=== PATIENT | female | born 1955 | race Caucasian/White ===

== ENCOUNTER → 2019-11-30 10:09 | Outpatient (BNVA) | payer MEDICAID, SELFPAY | PROVIDERS: Family Provider Internal Medicine; PCP Family Medicine; Visit Provider Nurse Practitioner | DX: F43.12 Post-traumatic stress disorder, chronic (principal); F41.9 Anxiety disorder, unspecified; F12.20 Cannabis dependence, uncomplicated; F60.3 Borderline personality disorder; F17.210 Nicotine dependence, cigarettes, uncomplicated | CPT/HCPCS: 99213 ==

== ENCOUNTER → 2020-02-27 07:44 | Outpatient (BNVA) | payer MEDICAID, SELFPAY | PROVIDERS: Family Provider Internal Medicine; PCP Family Medicine; Visit Provider Nurse Practitioner | DX: F41.9 Anxiety disorder, unspecified (principal); F43.12 Post-traumatic stress disorder, chronic; F17.210 Nicotine dependence, cigarettes, uncomplicated; F60.3 Borderline personality disorder; F12.20 Cannabis dependence, uncomplicated | CPT/HCPCS: 99213 ==

== ENCOUNTER 2020-04-01 06:39 | Emergency (ER) | payer MEDICAID, SELFPAY ==
[2020-04-01 06:41] VITALS: BP 158/95; PULSE 120; RESP 24; TEMP 36.7; O2SAT 95; BMI 35.4
--- NOTE | 2020-04-01 06:59 | XRR_ITS ---
PROCEDURE INFORMATION: Exam: XR Lumbosacral Spine, 2 or 3 Views Exam date and time: 04/01/2020 7:08 AM Age: 64 years old Clinical indication: Low back pain; Patient HX: C/O low back and lle pain, tripped over a dog bowl last night but denies falling; Additional info: Sciatica TECHNIQUE: Imaging protocol: XR of the lumbosacral spine, 3 views. Other technique: AP, lateral and spot lateral views of the lumbar spine are submitted. COMPARISON: CR Lumbar Spine 2-3 views* [id number] 08/02/2015 1:28 AM FINDINGS: Vertebrae: Degenerative disc disease at left lumbar spine disk level, with mild levoscoliosis. 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 Soft tissues: Unremarkable. XR/XR lumbar spine 2-3V* [id number] IMPRESSION: 1. Degenerative changes as above. 2. No acute lumbar spinal bony abnormality identified.
--- NOTE | 2020-04-01 07:06 | W.ED.EXTPRO ---
HPI - Extremity Problem General: Chief complaint: Extremity Problem,Nontraumatic Stated complaint: leg pain Time Seen by Provider: 04/01/20 06:43 History of Present Illness: HPI Narrative: Patient has a long history of left leg pain and sciatica. She states that her left leg and left hip are hurting much more today than typically. She does not report any new injury. MD Complaint: extremity pain Onset (ago): unknown Pain Consistency: constant Location: left Severity scale (1-10): >10 Quality: stabbing and sharp Radiation: distal Relieving factors: nothing Exacerbating factors: range of motion, weight bearing, walking and palpation Associated symptoms: Reports no associated symptoms Review of Systems General: Reports: 10 or more systems reviewed and unremarkable except in HPI and below PFSH ED PFSH: Medical History Anxiety disorder, unspecified Borderline personality disorder Cannabis dependence, uncomplicated Nicotine dependence, cigarettes, uncomplicated Post-traumatic stress disorder, chronic Social History Smoking and tobacco status: current every day smoker cigarettes Smoking risk assessment/counseling performed?: Yes Tobacco counseling given: counseling >3 minutes Physical Exam Const: COMMON NORMALS: patient oriented x3, no limitations and alert GENERAL APPEARANCE: in distress HENMT: COMMON NORMALS: normocephalic, atraumatic, external ears normal and Normal external nose present HEAD & SCALP: normocephalic and atraumatic FACE & SINUS: normal facial exam NOSE: Normal external nose present EXTERNAL EAR: Yes external ears normal MOUTH: Normal oral and palatal mucosa present Neck/C-Spine: COMMON NORMALS: full ROM, no lymphadenopathy, supple, no meningeal signs and no JVD GENERAL: Yes normal visual inspection Resp: COMMON NORMALS: normal respiratory effort, No retractions, No use of accessory muscles and clear to auscultation bilaterally AUSCULTATION: clear to auscultation bilaterally Cardio: COMMON NORMALS: no JVD, regular rate and regular rhythm RATE: regular rate RHYTHM: regular rhythm GI: COMMON NORMALS: Normal to inspection, nondistended, normoactive bowel sounds present, Soft to palpation, non-tender, No hepatosplenomegaly present and no masses INSPECTION: Yes normal to inspection AUSCULTATION: Yes normoactive bowel sounds PALPATION: Yes Soft to palpation and Yes No hepatosplenomegaly present PERCUSSION: normal to percussion : COMMON NORMALS: Yes no CVA tenderness and Yes normal external appearance BLADDER/KIDNEY EXAM: Yes no CVA tenderness Back/Pelvis: COMMON NORMALS: no CVA tenderness, thoracic and lumbar spine normal to inspection, no thoracic nor lumbar tenderness, thoraco-lumbar ROM normal and straight leg raise negative bilaterally Extremity: COMMON NORMALS: normal to inspection, full ROM, capillary refill normal, no joint enlargement, no clubbing, cyanosis or edema, no calf tenderness and no pedal edema Neuro: COMMON NORMALS: patient oriented x3, moves all extremities, no focal motor deficits and no sensory deficits noted SENSORIUM/ORIENTATION: Yes alert MENINGEAL SIGNS: Yes no meningeal signs Psych: COMMON NORMALS: mental status grossly normal, Normal thought process present, cooperative, normal affect and speech normal SPEECH: Yes normal speech THOUGHT PROCESS: Normal thought process present Skin: COMMON NORMALS: no rashes or lesions noted, no wounds, turgor normal, no jaundice, no petechiae and no mottling GENERAL SKIN EXAM: no rashes or lesions noted and turgor normal Course Vital Signs: Vital signs: Vital Signs Temperature 98.0 F 04/01/20 06:41 Pulse Rate 120 H 04/01/20 06:41 Respiratory Rate 24 H 04/01/20 06:41 Blood Pressure 158/95 04/01/20 06:41 Pulse Oximetry 95 04/01/20 06:41 MDM - Extremity (Nontraumatic) Imaging Data^: Xray Ortho: My impression: No evidence of acute bony abnormality Discharge Plan Discharge Patient Disposition: Home, Self-Care Clinical Impression: Acute lumbar myofascial strain Qualifiers: Encounter type: initial encounter Qualified Code(s): S39.012A - Strain of muscle, fascia and tendon of lower back, initial encounter Condition: Stable Prescriptions: New cyclobenzaprine 10 mg tablet 10 mg PO TID PRN (Reason: muscle spasm) Qty: 21 RF: 0 No Action opium tincture 10 mg/mL (morphine) tincture 0.3 ml PO TID PRNRF: 0 ropinirole 4 mg tablet 4 mg PO BID RF: 0 acyclovir 400 mg tablet 400 mg PO BID RF: 0 azathioprine 50 mg tablet 100 mg PO DAILY RF: 0 cyclobenzaprine 10 mg tablet 10 mg PO TID PRNRF: 0 hydrocodone-acetaminophen 7.5-325 mg tablet 1 tab PO QID PRNRF: 0 duloxetine [Cymbalta] 60 mg capsule,delayed release(DR/EC) 120 mg PO QAM Qty: 60 RF: 2 mirtazapine 45 mg tablet 45 mg PO .QHS Qty: 30 RF: 2 nicotine 21 mg/24 hr patch 24 hour 1 patch TRANSDERMA Q24H Qty: 28 RF: 0 Discharge Orders: Discharge Order (Routine); Ordered 04/01/20 Ordered By: Carlos Garcia Referrals: Fede Jordan MD [Primary Care Provider] - Sae Oneal DO [Family Provider] - Coding Level of Care Code ED Credit Support Specialist for Chg Fwd Exam Comprehensive
[2020-04-01] MEDS: ketorolac 60 mg/2 mL INJ IM (07:15)
[2020-04-01] MEDS: ondansetron 2 mg/ML SDV 2 mL 4 MG IVP (07:41)
[2020-04-01 07:46] VITALS: RESP 18; O2SAT 96
[2020-04-01] MEDS: morphine 4 mg/mL SDV 1 mL 2 MG IVP (07:46)
[2020-04-01 07:57] VITALS: BP 99/76; PULSE 86; RESP 18; O2SAT 97
== END 2020-04-01 08:00 | disposition home or self-care (01) ==
PROVIDERS: Emergency Provider Family Medicine; Family Provider Internal Medicine; PCP Family Medicine
DX: S39.012A Strain of muscle, fascia and tendon of lower back, initial encounter (principal); F17.210 Nicotine dependence, cigarettes, uncomplicated; X58.XXXA Exposure to other specified factors, initial encounter
CPT/HCPCS: 12345; 72100; 96372; 96374; 96375; 99281; 99283; J1885; J2270; J2405

== ENCOUNTER → 2020-04-23 09:25 | Outpatient (BNVA) | payer OTHER, SELFPAY | PROVIDERS: Family Provider Internal Medicine; PCP Family Medicine; Visit Provider Nurse Practitioner | DX: F41.9 Anxiety disorder, unspecified (principal); Z79.899 Other long term (current) drug therapy; F43.10 Post-traumatic stress disorder, unspecified | CPT/HCPCS: 80061; 83036 ==

== ENCOUNTER → 2020-04-25 10:32 | Outpatient (BNVA) | payer MEDICAID, SELFPAY | PROVIDERS: Family Provider Internal Medicine; PCP Family Medicine; Visit Provider Nurse Practitioner | DX: F41.9 Anxiety disorder, unspecified (principal); Z79.899 Other long term (current) drug therapy | CPT/HCPCS: 36415; 83036 ==

== ENCOUNTER → 2020-06-29 07:32 | Outpatient (BNVA) | payer MEDICAID, SELFPAY ==
[2020-04-27 12:14] VITALS: BP 146/91; BMI 31.8
== END ==
PROVIDERS: Family Provider Internal Medicine; PCP Family Medicine; Visit Provider Nurse Practitioner
DX: F43.12 Post-traumatic stress disorder, chronic (principal); F41.9 Anxiety disorder, unspecified; F12.20 Cannabis dependence, uncomplicated
CPT/HCPCS: 99213

== ENCOUNTER 2020-09-08 10:46 | Emergency (ER) | payer MEDICAID, SELFPAY ==
[2020-04-27 12:14] VITALS: BP 146/91; BMI 31.8
[2020-09-08 11:02] VITALS: BP 124/79; PULSE 108; RESP 16; TEMP 37.4; O2SAT 97; BMI 31.8
--- NOTE | 2020-09-08 11:12 | ED_ITS ---
HPI - Extremity Problem General: Chief complaint: Extremity Problem,Nontraumatic Stated complaint: LEFT THIGH PAIN Time Seen by Provider: 09/08/20 11:12 Source: patient Mode of arrival: ambulatory Limitations: no limitations History of Present Illness: HPI Narrative: Patient comes in for restless legs. Patient reports she has had left leg tenderness to the thigh with restlessness of her lower leg. Patient states that she has real bad restless leg syndrome. Patient states that she had back surgery done at the end of July and has been going about doing her work as normal at home after getting home on the . Patient moves all extremities well denies any bowel or bladder problems. Patient reports though that on of this week she slipped and fell from a kneeling position landing on her buttocks at about 1 foot. Since then she has had increased discomfort to the left thigh and restlessness in her legs. Patient reports that her legs are more restless probably due to the dexamethasone they have her on for post surgery swelling. Patient appears anxious and very restless. MD Complaint: extremity pain Review of Systems General: Reports: 10 or more systems reviewed and unremarkable except in HPI and below Musc: Reports: other (left leg pain) [facility] ED PFSH: Medical History (Updated 09/08/20 @ 12:30 by SHAD Ruiz) Anxiety disorder, unspecified Borderline personality disorder Cannabis dependence, uncomplicated Nicotine dependence, cigarettes, uncomplicated Post-traumatic stress disorder, chronic Family History (Updated 06/28/20 @ 13:48 by Jocelynn Muhammad LPN) Father CAD (coronary artery disease) Cancer Mother CAD (coronary artery disease) Cancer Brother CAD (coronary artery disease) Sister Cancer Social History (Updated 09/08/20 @ 11:09 by Seth Donohue RN) Smoking and tobacco status: current every day smoker cigarettes Packs smoked per day: 0.5 Quit status (tobacco): not considering quitting Smoking risk assessment/counseling performed?: Yes Tobacco counseling given: counseling >3 minutes Alcohol intake: never Substance/Drug Use: current Substance/Drug use frequency: daily Substance/Drug use type: Marijuana Current gender identity: Female Physical Exam Const: COMMON NORMALS: no acute distress and patient oriented x3 GENERAL APPEARANCE: cooperative HENMT: COMMON NORMALS: normocephalic, TM's normal bilaterally and Normal external nose present HEAD & SCALP: normal to inspection and normocephalic NOSE: Normal external nose present TYMPANIC MEMBRANE: TM's normal bilaterally MOUTH: Normal oral and palatal mucosa present THROAT: posterior oropharynx normal Eye: GENERAL EYE: appearance normal, both eyes and all related structures Neck/C-Spine: COMMON NORMALS: full ROM Lymph: LYMPHATIC: no lymphadenopathy noted Chest: COMMONS NORMALS: normal inspection of the chest Resp: COMMON NORMALS: normal respiratory effort EFFORT & INSPECTION: Yes able to speak in complete sentences Cardio: COMMON NORMALS: regular rate and regular rhythm RATE: regular rate RHYTHM: regular rhythm GI: COMMON NORMALS: non-tender : COMMON NORMALS: Yes no CVA tenderness BLADDER/KIDNEY EXAM: Yes no CVA tenderness Back/Pelvis: COMMON NORMALS: no CVA tenderness and thoracic and lumbar spine normal to inspection Extremity: NARRATIVE EXTREMITY EXAM: Normal movement of the lower extremities. Normal muscle strength. Patient constantly moves her legs unless redirected. When she is talking about other things patient's legs stop moving. Neuro: COMMON NORMALS: patient oriented x3 and moves all extremities Psych: COMMON NORMALS: mental status grossly normal and cooperative Skin: NARRATIVE SKIN EXAM: Healed surgical incision to the low back. Course Vital Signs: Vital signs: Vital Signs Temperature 99.3 F 09/08/20 11:02 Pulse Rate 108 H 09/08/20 11:02 Respiratory Rate 16 09/08/20 11:02 Blood Pressure 117/96 09/08/20 12:13 Pulse Oximetry 97 09/08/20 11:02 MDM - Extremity (Nontraumatic) MDM Narrative: Medical decision making narrative: Patient comes in today for complaints of restless legs and pain in the left thigh. Patient was concerned d ue to the fact that she had recently stumbled and fell and had had lumbar surgery at the end of last month. Patient appears well. Patient moves extremities without any difficulty. Patient denied any bowel or bladder problems. Vital signs were normal. Patient was very anxious. Differential diagnosis includes but not limited to neuropathy, injury, anxiety. X-ray noted no significant abnormality. Patient was given Ativan and symptoms abated significantly. Further discussion realized patient was out of her gabapentin we will write a short prescription for gabapentin and a short prescription for lorazepam for breakthrough anxiety. Patient was recommended to follow-up with primary care for further treatment and evaluation. Patient reported understanding. Discharge Plan Discharge Patient Disposition: Home Clinical Impression: Neuropathy, Restless legs syndrome (RLS) Anxiety disorder, unspecified Qualifiers: Anxiety disorder type: unspecified anxiety disorder Qualified Code(s): F41.9 - Anxiety disorder, unspecified Condition: Stable Prescriptions: New lorazepam 0.5 mg tablet 0.5 mg PO DAILY PRN (Reason: anxiety) Qty: 7 RF: 0 gabapentin 300 mg capsule 300 mg PO TID Qty: 30 RF: 0 No Action meloxicam 7.5 mg tablet 7.5 mg PO DAILY Qty: 10 RF: 0 opium tincture 10 mg/mL (morphine) tincture 0.3 ml PO TID PRNRF: 0 ropinirole 4 mg tablet 4 mg PO BID RF: 0 acyclovir 400 mg tablet 400 mg PO BID RF: 0 azathioprine 50 mg tablet 100 mg PO DAILY RF: 0 cyclobenzaprine 10 mg tablet 10 mg PO TID PRNRF: 0 hydrocodone-acetaminophen 7.5-325 mg tablet 1 tab PO QID PRNRF: 0 gabapentin 300 mg capsule 300 mg PO .at bed RF: 0 duloxetine [Cymbalta] 60 mg capsule,delayed release(DR/EC) 120 mg PO QAM Qty: 60 RF: 2 mirtazapine 45 mg tablet 45 mg PO .QHS Qty: 30 RF: 0 cyclobenzaprine 10 mg tablet 10 mg PO TID PRN (Reason: muscle spasm) Qty: 21 RF: 0 Discharge Orders: Discharge ED (Routine); Ordered 09/08/20 Ordered By: Radames Cary Discharge Diet: Usual diet Discharge Activity: Increase activity as tolerated Activity Restrictions/Additional Instructions: Activity as tolerated. Take medications as directed. Follow-up with primary care for further treatment and evaluation. Talk with surgeon or prescriber for gabapentin to ensure that prescriptions have been sent to pharmacy. Return to the emergency department for new concerns. Coding Level of Care Code ED Security And Privacy Consultant for Carlos Fwyariel Exam Comprehensive
--- NOTE | 2020-09-08 11:20 | XRR_ITS ---
PROCEDURE INFORMATION: Exam: XR Lumbosacral Spine, 2 or 3 Views Exam date and time: 09/08/2020 11:21 AM Age: 65 years old Clinical indication: Injury or trauma; Fall; Blunt trauma (contusions or hematomas) TECHNIQUE: Imaging protocol: XR of the lumbosacral spine, 2 or 3 views. COMPARISON: CT abdomen pelvis w con* [id number] 09/25/2016 11:29 AM FINDINGS: Bones/joints: The patient has undergone L2 through L5 laminectomy and fusion. Pedicle screws and rods are present from L2 through L5 with vertebral disc spacers. Position and alignment appears satisfactory. No fracture, malalignment or other acute abnormality is seen. Soft tissues: Unremarkable. XR/XR lumbar spine 2-3V* [id number] IMPRESSION: 1. Satisfactory appearance of the L2 through L5 laminectomy and fusion surgery. 2. No acute abnormalities are seen.
[2020-09-08] MEDS: LORazepam 2 mg/mL INJ 1 mL IM (11:25)
[2020-09-08 12:13] VITALS: BP 117/96
[2020-09-08 12:38] VITALS: BP 140/86
== END 2020-09-08 12:39 | disposition home or self-care (01) ==
PROVIDERS: Emergency Provider Nurse Practitioner Family
DX: G25.81 Restless legs syndrome (principal); F41.9 Anxiety disorder, unspecified; G62.9 Polyneuropathy, unspecified; F17.210 Nicotine dependence, cigarettes, uncomplicated
CPT/HCPCS: 12345; 72100; 96372; 99281; 99283; J2060

== ENCOUNTER → 2020-10-12 07:52 | Outpatient (BNVA) | payer MEDICAID, SELFPAY ==
[2020-04-27 12:14] VITALS: BP 146/91; BMI 31.8
== END ==
PROVIDERS: PCP Family Medicine; Visit Provider Nurse Practitioner
DX: F43.12 Post-traumatic stress disorder, chronic (principal); F41.9 Anxiety disorder, unspecified; F12.20 Cannabis dependence, uncomplicated; F60.3 Borderline personality disorder; F17.210 Nicotine dependence, cigarettes, uncomplicated
CPT/HCPCS: 99214

== ENCOUNTER 2020-11-17 19:37 | Emergency (ER) | payer MEDICAID, SELFPAY ==
[2020-04-27 12:14] VITALS: BP 146/91; BMI 31.8
[2020-11-17 20:05] VITALS: BMI 35.4
[2020-11-17 20:10] VITALS: BP 139/87; PULSE 110; RESP 16; TEMP 37.1; O2SAT 97
--- NOTE | 2020-11-17 21:56 | ECG_ITS ---
[facility] Test Date: 2020-11-17 Pat Name: Kristin Argueta Department: Room: Gender: Female Electronics Supervisor: : 1955 Requested By: Alea Gibbs Order Number: [id number] William MD: Froy Back M.D. Measurements Intervals [place] Rate: 88 P: 77 CA: 144 QRS: 21 QRSD: 127 T: 79 QT: 370 QTc: 449 Interpretive Statements SINUS RHYTHM POSSIBLE RIGHT ATRIAL ENLARGEMENT [0.25mV P WAVE] LEFT ATRIAL ENLARGEMENT [-0.15mV P WAVE IN V1/V2] ANTEROSEPTAL MYOCARDIAL INFARCTION , OF INDETERMINATE AGE [40+ ms Q WAVE IN V1-V4] Compared to ECG 10/14/2018 12:11:41 Atrial abnormality now present Myocardial infarct finding now present T-wave abnormality no longer present Electronically Signed On 11-18-2020 17:02:22 RELEASE MANAGER by Froy Back M.D. [id number]
[2020-11-17 22:06] LABS: Basophils # 0.1 10^3/uL (0.0-0.1); Basophils % 1.7 %; Eosinophils # 0.3 10^3/uL (0.0-0.8); Eosinophils % 4.9 %; Hematocrit 39.1 % (37.0-47.0); Hemoglobin 12.1 g/dL (11.5-15.3); Lymphocytes # 1.9 10^3/uL (0.8-4.8); Lymphocytes % 29.7 %; Mean Corpuscular HGB Conc 30.9 g/dL (30.0-36.0); Mean Corpuscular Hemoglobin 26.1 pg (28.0-34.0); Mean Corpuscular Volume 84.4 fL (81-99); Monocytes # 0.7 10^3/uL (0.2-0.9); Monocytes % 10.2 %; Neutrophils # 3.45 10^3/uL (1.8-7.7); Neutrophils % 53.3 %; Nucleated Red Blood Cells % 0 %; Platelet Count 423 10^3/cmm (130-400); Red Blood Count 4.63 10^6/uL (4.1-5.3); Red Cell Distribution Width 15.6 % (12.1-15.1); White Blood Count 6.5 10^3/uL (4.0-10.0)
[2020-11-17 22:20] LABS: INR 0.99 (0.8-1.2)
[2020-11-17 22:38] LABS: Alanine Aminotransferase 11 U/L (0-33); Albumin Level 4.2 g/dL (3.5-5.2); Alkaline Phosphatase 81 IU/L (35-105); Aspartate Amino Transferase 15 U/L (0-32); Blood Urea Nitrogen 15 mg/dL (8-23); Carbon Dioxide 22 mmol/L (22-29); Chloride 104 mmol/L (98-107); Creatinine Clr Calc Pharmacy 72.9596; Glomerular Filtration Rate 71.5 mL/min (90-130); Glucose 103 mg/dL (65-115); Osmolality Calculated 285 mOsm/kg (285-295); Sodium 137 mmol/L (136-145); Thyroid Stimulating Hormone 2.74 uIU/mL (0.27-4.20); Total Bilirubin 0.2 mg/dL (0.15-1.2); Total Protein 7.2 g/dL (6.6-8.7)
[2020-11-17 22:45] LABS: Acetaminophen < 5.0 ug/mL (10-30); Alcohol Level < 10 mg/dL (0-10); Salicylate < 0.3 mg/dL (3-10)
--- NOTE | 2020-11-17 23:09 | ED_ITS ---
HPI - Psych General: Chief Complaint: Psychiatric Symptoms Stated Complaint: psych Time Seen by Provider: 11/17/20 19:48 Source: patient Mode of arrival: EMS Limitations: no limitations History of Present Illness: HPI Narrative: 65-year-old female with a history of chronic pain, anxiety brought in by EMS after her home health aide called 911 to report concerns that the patient was suicidal. Apparently the patient had become very frustrated earlier in the day because of family drama, and had made a suicidal statedment via text to the aide. She has no previous suicide attem pts. She admits to previous suicidal ideations in the past, but has never acted upon them, and does not believe that she would ever would act upon them. Currently she is denying any active suicidal ideation. She was very frustrated and angry at the time that she said that to the aid, she feels differently now and she wishes that the aide would have talk to her first before calling 911. She has a dog that she takes everywhere with her, and she says she would never kill herself because she would never want to leave the dog alone, in addition she has family and friends that she is close to, and she realizes that the current family problems will probably blow over. Denies any homicidal ideation. No audiovisual hallucinations. Review of Systems General: Reports: 10 or more systems reviewed and unremarkable except in HPI and below PFSH ED PFSH: Medical History Anxiety disorder, unspecified Borderline personality disorder Cannabis dependence, uncomplicated Nicotine dependence, cigarettes, uncomplicated Post-traumatic stress disorder, chronic Family History Father CAD (coronary artery disease) Cancer Mother CAD (coronary artery disease) Cancer Brother CAD (coronary artery disease) Sister Cancer Social History Smoking and tobacco status: current every day smoker cigarettes Packs smoked per day: 0.5 Quit status (tobacco): not considering quitting Smoking risk assessment/counseling performed?: Yes Tobacco counseling given: counseling >3 minutes Alcohol intake: never Current gender identity: Female Physical Exam Const: COMMON NORMALS: no acute distress and patient oriented x3 GENERAL APPEARANCE: cooperative; not in distress, not anxious, not combative, not disheveled, not ill appearing and not frail appearing NUTRITIONAL APPEARANCE: overweight HENMT: COMMON NORMALS: normocephalic and hearing grossly normal bilaterally HEAD & SCALP: normocephalic FACE & SINUS: normal facial exam and face symmetric Eye: COMMON NORMALS: Equal, round and reactive pupils present, EOMs intact bilaterally, conjunctivae normal and no scleral icterus GENERAL EYE: appearance normal, both eyes and all related structures ALIGNMENT: Yes alignment normal CONJUNCTIVA: Yes conjunctivae normal PUPIL: Yes Equal, round and reactive pupils present EOM: Yes EOM abnormal Neck/C-Spine: COMMON NORMALS: full ROM and no lymphadenopathy Resp: COMMON NORMALS: clear to auscultation bilaterally EFFORT & INSPECTION: Yes able to speak in complete sentences, No tachypneic and No respiratory distress AUSCULTATION: clear to auscultation bilaterally Neuro: COMMON NORMALS: patient oriented x3, CN's II-XII intact bilaterally, moves all extremities, no focal motor deficits, no sensory deficits noted and gait normal Psych: COMMON NORMALS: mental status grossly normal, Normal thought process present, cooperative, normal affect, speech normal, activity/motor behavior normal, denies hallucinations, denies homicidal ideation and denies suicidal ideation APPEARANCE: Yes grossly normal ATTITUDE: Yes calm SPEECH: Yes normal speech THOUGHT PROCESS: Normal thought process present THOUGHT CONTENT: Yes Normal thought content present ATTENTION/CONCENTRATION: Yes attention grossly intact MEMORY/COGNITION: Yes memory grossly intact INSIGHT: Good insight present (Psych) JUDGEMENT: Good judgement present (Psych) Skin: COMMON NORMALS: no rashes or lesions noted GENERAL SKIN EXAM: no rashes or lesions noted MDM - Psych MDM Narrative: Medical decision making narrative: 65-year-old female with a history of depression, anxiety, chronic pain made passive suicidal statements to her aid via text earlier today. Currently she denies any suicidal ideation, states that she was just angry and frustrated at the time. She admits to having suicidal thoughts in the past, but never has acted upon them, and says she would never actually harm herself because she has people and animals that depend on her. She understands why her aide reacted to her text and called 911, however she wishes at the age would have talk to her first because she would have reassured her that she was not actually serious, and that she was just mad. Patient is not actively suicidal, she is alert and oriented, and is able to make her own decisions. I recommended she follow-up closely with her PCP and that she not hesitate to return if she starts to have any worsening thoughts of harming herself. Medical Records: Attestation: I reviewed the patient's medical records. Lab Data: Attestation: I reviewed the patient's lab results. Labs: Lab Results 11/17/20 11/17/20 11/17/20 Range/Units 20:10 20:10 20:10 WBC 6.5 (4.0-10.0) 10^3/ uL RBC 4.63 (4.1-5.3) 10^6/u L Hgb 12.1 (11.5-15.3) g/dL Hct 39.1 (37.0-47.0) % MCV 84.4 (81-99) fL MCH 26.1 L (28.0-34.0) pg MCHC 30.9 (30.0-36.0) g/dL RDW 15.6 H (12.1-15.1) % Plt Count 423 H (130-400) 10^3/c mm MPV 10.0 (7.4-10.4) fL Neut % (Auto) 53.3 % Lymph % (Auto) 29.7 % Bledsoe % (Auto) 10.2 % Eos % (Auto) 4.9 % Baso % (Auto) 1.7 % Neut # (Auto) 3.45 (1.8-7.7) 10^3/u L Lymph # (Auto) 1.9 (0.8-4.8) 10^3/u L Bledsoe # (Auto) 0.7 (0.2-0.9) 10^3/u L Eos # (Auto) 0.3 (0.0-0.8) 10^3/u L Baso # (Auto) 0.1 (0.0-0.1) 10^3/u L Nucleated RBC % (a uto) 0 % Nucleated RBCs # 0.0 /100WBC PT 13.40 (12.1-14.9) SECO NDS INR 0.99 (0.8-1.2) Sodium 137 (136-145) mmol/L Potassium 4.0 (3.5-5.1) mmol/L Chloride 104 (98-107) mmol/L Carbon Dioxide 22 (22-29) mmol/L Anion Gap 15.0 (5-19) BUN 15 (8-23) mg/dL Creatinine 0.8 (0.5-0.9) mg/dL GFR Calculation 71.5 L (90-130) mL/min Glucose 103 (65-115) mg/dL Calculated Osmolal ity 285 (285-295) mOsm/k g Calcium 9.0 (8.5-10.5) mg/dL Total Bilirubin 0.2 (0.15-1.2) mg/dL AST 15 (0-32) U/L ALT 11 (0-33) U/L Alkaline Phosphata se 81 (35-105) IU/L Total Protein 7.2 (6.6-8.7) g/dL Albumin 4.2 (3.5-5.2) g/dL Globulin 3.0 (1.3-4.6) g/dL TSH 2.74 (0.27-4.20) uIU/ mL HCG, Qual Salicylates < 0.3 L (3-10) mg/dL Acetaminophen < 5.0 L (10-30) ug/mL Ethyl Alcohol < 10 (0-10) mg/dL 11/17/20 Range/Units 21:46 WBC (4.0-10.0) 10^3/ uL RBC (4.1-5.3) 10^6/u L Hgb (11.5-15.3) g/dL Hct (37.0-47.0) % MCV (81-99) fL MCH (28.0-34.0) pg MCHC (30.0-36.0) g/dL RDW (12.1-15.1) % Plt Count (130-400) 10^3/c mm MPV (7.4-10.4) fL Neut % (Auto) % Lymph % (Auto) % Bledsoe % (Auto) % Eos % (Auto) % Baso % (Auto) % Neut # (Auto) (1.8-7.7) 10^3/u L Lymph # (Auto) (0.8-4.8) 10^3/u L Bledsoe # (Auto) (0.2-0.9) 10^3/u L Eos # (Auto) (0.0-0.8) 10^3/u L Baso # (Auto) (0.0-0.1) 10^3/u L Nucleated RBC % (a uto) % Nucleated RBCs # /100WBC PT (12.1-14.9) SECO NDS INR (0.8-1.2) Sodium (136-145) mmol/L Potassium (3.5-5.1) mmol/L Chloride (98-107) mmol/L Carbon Dioxide (22-29) mmol/L Anion Gap (5-19) BUN (8-23) mg/dL Creatinine (0.5-0.9) mg/dL GFR Calculation (90-130) mL/min Glucose (65-115) mg/dL Calculated Osmolal ity (285-295) mOsm/k g Calcium (8.5-10.5) mg/dL Total Bilirubin (0.15-1.2) mg/dL AST (0-32) U/L ALT (0-33) U/L Alkaline Phosphata se (35-105) IU/L Total Protein (6.6-8.7) g/dL Albumin (3.5-5.2) g/dL Globulin (1.3-4.6) g/dL TSH (0.27-4.20) uIU/ mL HCG, Qual Cancelled Salicylates (3-10) mg/dL Acetaminophen (10-30) ug/mL Ethyl Alcohol (0-10) mg/dL Discharge Plan Discharge Patient Disposition: Home Clinical Impression: Passive suicidal ideations Anxiety disorder, unspecified Qualifiers: Anxiety disorder type: other mixed anxiety disorder Qualified Code(s): F41.3 - Other mixed anxiety disorders Condition: Stable Prescriptions: No Action meloxicam 7.5 mg tablet 7.5 mg PO DAILY Qty: 10 RF: 0 opium tincture 10 mg/mL (morphine) tincture 0.3 ml PO TID PRNRF: 0 ropinirole 4 mg tablet 4 mg PO BID RF: 0 acyclovir 400 mg tablet 400 mg PO BID RF: 0 azathioprine 50 mg tablet 100 mg PO DAILY RF: 0 cyclobenzaprine 10 mg tablet 10 mg PO TID PRNRF: 0 hydrocodone-acetaminophen 7.5-325 mg tablet 1 tab PO QID PRNRF: 0 gabapentin 300 mg capsule 300 mg PO .at bed RF: 0 duloxetine [Cymbalta] 60 mg capsule,delayed release(DR/EC) 120 mg PO QAM Qty: 60 RF: 2 mirtazapine 45 mg tablet 45 mg PO .QHS Qty: 30 RF: 2 lorazepam 0.5 mg tablet 0.5 mg PO DAILY PRN (Reason: anxiety) Qty: 7 RF: 0 gabapentin 300 mg capsule 300 mg PO TID Qty: 30 RF: 0 cyclobenzaprine 10 mg tablet 10 mg PO TID PRN (Reason: muscle spasm) Qty: 21 RF: 0 Discharge Orders: Discharge ED (Routine); Ordered 11/17/20 Ordered By: Alea Gibbs Referrals: Fede Jordan MD [Primary Care Provider] - Discharge Diet: Usual diet Discharge Activity: Resume usual activity Patient Instructions: Suicide Prevention for Adults (ED), Suicidal Ideation Activity Restrictions/Additional Instructions: Call your professional services manager tomorrow morning to check in and discuss what happened tonight. Follow-up with your primary care doctor in the next week. Return immediately to the ER if you start having more frequent thoughts of self- harm, or if you start to feel overwhelmed and hopeless. Coding Level of Care Code ED Fish Housekeeper for Carlos Hernandez
== END 2020-11-17 22:51 | disposition home or self-care (01) ==
PROVIDERS: Emergency Provider Family Medicine; PCP Family Medicine
DX: R45.851 Suicidal ideations (principal); F41.3 Other mixed anxiety disorders; F17.210 Nicotine dependence, cigarettes, uncomplicated
CPT/HCPCS: 80053; 80307; 84443; 85025; 85610; 93005; 99283

== ENCOUNTER → 2020-12-26 08:03 | Outpatient (BNVA) | payer MEDICAID, SELFPAY ==
[2020-04-27 12:14] VITALS: BP 146/91; BMI 31.8
== END ==
PROVIDERS: PCP Family Medicine; Visit Provider Nurse Practitioner
DX: F43.12 Post-traumatic stress disorder, chronic (principal); F41.9 Anxiety disorder, unspecified; F12.20 Cannabis dependence, uncomplicated; F60.3 Borderline personality disorder; F17.210 Nicotine dependence, cigarettes, uncomplicated; F41.3 Other mixed anxiety disorders
CPT/HCPCS: 99214

== ENCOUNTER → 2021-03-06 09:02 | Outpatient (BNVA) | payer MEDICAID, SELFPAY ==
[2020-04-27 12:14] VITALS: BP 146/91; BMI 31.8
== END ==
PROVIDERS: PCP Family Medicine; Visit Provider Nurse Practitioner
DX: F60.3 Borderline personality disorder (principal); F41.3 Other mixed anxiety disorders; F43.12 Post-traumatic stress disorder, chronic; F17.210 Nicotine dependence, cigarettes, uncomplicated
CPT/HCPCS: 99214

== ENCOUNTER 2021-03-21 07:59 | Emergency (ER) | payer MEDICAID, SELFPAY ==
[2020-04-27 12:14] VITALS: BP 146/91; BMI 31.8
[2021-03-21 08:29] VITALS: BP 143/112; PULSE 92; RESP 24; TEMP 36.7; O2SAT 99; BMI 36.8
--- NOTE | 2021-03-21 08:39 | XR_ITS ---
WS: [id number] Portable AP upright chest, 03/21/2021 Clinical Data: cough, R chest pain Comparison: Portable chest, 10/14/2018. Findings: There are small bilateral pleural effusions. There is minimal opacity over the surface of t he left diaphragm and at the right costophrenic angle which could represent atelectasis and/or pneumo yosef. No nodules or masses are seen. The heart is normal. The pulmonary vascularity is not increased. No pneumothorax is seen. The aortic arch is minimally tortuous. There is absence of the distal righ t clavicle. Impression: 1. Small bilateral pleural effusions. 2. Minimal opacity over surface of left diaphragm and at the right costophrenic angle which could rep resent consolidation and/or atelectasis. 3. Atherosclerosis.
--- NOTE | 2021-03-21 08:40 | ECG_ITS ---
[facility] Test Date: 2021-03-21 Pat Name: Kristin Argueta Department: Room: Gender: Female Security Clerk: : 1955 Requested By: Addis Harley Order Number: [id number] William MD: Froy Back M.D. Measurements Intervals [place] Rate: 87 P: 73 [place]: 143 QRS: 60 QRSD: 89 T: 70 QT: 363 QTc: 437 Interpretive Statements SINUS RHYTHM LEFT ATRIAL ENLARGEMENT [-0.15mV P WAVE IN V1/V2] LOW QRS VOLTAGE IN PRECORDIAL LEADS [QRS DEFLECTION < 1.0 mV IN CHEST LEADS] Compared to ECG 11/17/2020 22:18:26 Low QRS voltage now present Myocardial infarct finding no longer present Electronically Signed On 03-21-2021 20:29:57 CDT by Froy Back M.D. [id number]
--- NOTE | 2021-03-21 08:41 | ED_ITS ---
HPI - URI/Sore Throat General: Chief Complaint: Upper Respiratory Infection Stated Complaint: SOB Time Seen by Provider: 03/21/21 08:20 Source: patient Mode of arrival: ambulatory Limitations: no limitations History of Present Illness: HPI Narrative: Patient is a 65-year-old female who presents to ED today with a complaint of cough, shortness of breath, difficulty breathing, chest pain that began approximately 10 days ago. Patient was recently seen at urgent care and diagnosed with bronchitis. She was given prescriptions for azithromycin, symbicort, and albuterol. Patient states she does not seem to be improving. She reports it feels like an elephant is sitting on her chest. She has not had any documented fevers. She does complain of body aches and fatigue. She reports a headache and nasal congestion. She is fully vaccinated for COVID. She states she quit smoking cold turkey one week ago. MD elicited complaint: cough, nasal congestion and other (SOB, chest pain) Onset (ago): day(s) Consistency: constant Severity: moderate Description of mucous: clear Able to tolerate fluids by mouth: Yes Exacerbating factors: other (coughing) Relieving factors: nothing Associated symptoms: Reports chest pain, diarrhea (chronic), headache(s) and nasal congestion; Deny abdominal pain, chills, fever(s), nausea or vomiting Treatments prior to arrival: antibiotics and other (symbicort/albuterol) Review of Systems Const: Reports: body aches and fatigue; Denies: fever(s), chills, change in appetite, change in weight, night sweats or diaphoresis Eyes: Denies: change in vision, blurry vision, photophobia, floaters or seeing flashes ENMT: Reports: nasal discharge and nasal congestion; Denies: throat pain or odynophagia Card: Reports: chest pain and dyspnea on exertion; Denies: palpitations, irregular heart rhythm, edema, swelling of feet/ankles, lightheadedness, syncope, pre-syncope, orthopnea, leg pain with exertion or acrocyanosis Resp: Reports: dyspnea, productive cough, pain on inspiration and chest congestion; Denies: wheezing, stridor or hemoptysis GI: Reports: diarrhea (chronic); Denies: abdominal pain, nausea or vomiting : Denies: flank pain or dysuria Musc: Denies: neck pain, back pain, extremity pain, extremity swelling, joint pain or joint swelling Skin/Breast: Denies: rash Neuro: Reports: headache(s); Denies: numbness in extremities, weakness in extremities, sensory changes, dizziness or confusion [facility] ED PFSH: Medical History (Updated 03/21/21 @ 10:40 by FRANCISCA Aviles) Anxiety disorder, unspecified Borderline personality disorder Cannabis dependence, uncomplicated Nicotine dependence, cigarettes, uncomplicated Post-traumatic stress disorder, chronic Post-traumatic stress disorder, unspecified Psychiatric care Family History Father CAD (coronary artery disease) Cancer Mother CAD (coronary artery disease) Cancer Brother CAD (coronary artery disease) Sister Cancer Social History Smoking and tobacco status: current every day smoker cigarettes Packs smoked per day: 0.5 Quit status (tobacco): not considering quitting Smoking risk assessment/counseling performed?: Yes Tobacco counseling given: counseling >3 minutes Alcohol intake: never Current gender identity: Female Physical Exam Const: COMMON NORMALS: patient oriented x3, no limitations and alert GENERAL APPEARANCE: cooperative and in distress (mild respiratory) NUTRITIONAL APPEARANCE: obese ORIENTATION/CONSCIOUSNESS: Yes awake, Yes oriented to person, Yes oriented to place and Yes oriented to time HENMT: COMMON NORMALS: normocephalic and atraumatic HEAD & SCALP: normocephalic and atraumatic Neck/C-Spine: COMMON NORMALS: full ROM, no lymphadenopathy and no meningeal s igns Chest: COMMONS NORMALS: normal inspection of the chest and normal palpation of entire chest wall OTHER: no pain to palpation but reports severe pain to R lower anterior ribs only with coughing Resp: EFFORT & INSPECTION: Yes tachypneic, Yes labored, No stridor, No retractions and Yes uses accessory muscles AUSCULTATION: rhonchi (improved with coughing and after duo-neb) throughout and wheezes OTHER: after duoneb patient's breathing no longer labored; no accessory muscle use; tachypnea resolved Cardio: COMMON NORMALS: regular rate and regular rhythm RATE: regular rate RHYTHM: regular rhythm GI: COMMON NORMALS: Normal to inspection, nondistended, normoactive bowel sounds present, Soft to palpation, non-tender, No hepatosplenomegaly present and no masses PALPATION: Yes Soft to palpation and Yes No hepatosplenomegaly present Back/Pelvis: THORACIC SPINE/UPPER BACK: Yes normal to inspection LUMBAR SPINE/LOWER BACK: Yes normal to inspection Extremity: COMMON NORMALS: capillary refill normal, no clubbing, cyanosis or edema and no pedal edema GENERAL: Yes normal exam except as noted Neuro: TAJ COMA SCALE: document GCS findings [place] coma scale eye opening: Spontaneous Taj coma scale verbal response: Orientated [place] coma scale motor response: Obey commands Taj coma scale total score: 15 COMMON NORMALS: patient oriented x3 SENSORIUM/ORIENTATION: Yes alert, Yes oriented to person, Yes oriented to place and Yes oriented to time MENINGEAL SIGNS: Yes no meningeal signs Skin: COMMON NORMALS: no rashes or lesions noted GENERAL SKIN EXAM: no rashes or lesions noted Course Vital Signs: Vital signs: Vital Signs Temperature 98.1 F 03/21/21 08:29 Pulse Rate 88 03/21/21 09:08 Respiratory Rate 16 03/21/21 09:00 Blood Pressure 143/112 03/21/21 08:29 Pulse Oximetry 97 03/21/21 09:00 MDM - URI/Sore Throat MDM Narrative: Medical decision making narrative: Patient feels better after DuoNeb treatment here. Her vital signs are stable. She has a normal white count. Initial troponin is elevated at 30. Recommend patient stay for a 2-hour troponin however she adamantly refuses stating all I want are Tessalon Perles and to go home . Discussed the importance of knowing a delta troponin to rule out cardiac etiology. Patient verbalizes understanding and still wants to go home. BNP is elevated at 727. CXR showing possible left lower lobe pneumonia. She also has small bilateral pleural effusions. She does not want any further testing or treatment for possible CHF. Rapid COVID was negative. PCR obtained and pending. Patient does agree to be placed on Augmentin and Doxycycline for treatment of her community-acquired pneumonia. Recommend she follow up with PCP in 3-5 days for re-evaluation. Lab Data: Labs: Lab Results 03/21/21 03/21/21 03/21/21 Range/Units 09:25 09:25 09:25 WBC 7.6 (4.0-10.0) 10^3/ uL RBC 4.48 (4.1-5.3) 10^6/u L Hgb 11.7 (11.5-15.3) g/dL Hct 37.4 (37.0-47.0) % MCV 83.5 (81-99) fL MCH 26.1 L (28.0-34.0) pg MCHC 31.3 (30.0-36.0) g/dL RDW 17.3 H (12.1-15.1) % Plt Count 366 (130-400) 10^3/c mm MPV 9.4 (7.4-10.4) fL Neut % (Auto) 54.8 % Lymph % (Auto) 31.9 % [place] % (Auto) 10.8 % Eos % (Auto) 1.6 % Baso % (Auto) 0.8 % Neut # (Auto) 4.16 (1.8-7.7) 10^3/u L Lymph # (Auto) 2.4 (0.8-4.8) 10^3/u L [place] # (Auto) 0.8 (0.2-0.9) 10^3/u L Eos # (Auto) 0.1 (0.0-0.8) 10^3/u L Baso # (Auto) 0.1 (0.0-0.1) 10^3/u L Nucleated RBC % (a uto) 0 % Nucleated RBCs # 0.0 /100WBC Sodium 138 (136-145) mmol/L Potassium 3.7 (3.5-5.1) mmol/L Chloride 105 (98-107) mmol/L Carbon Dioxide 21 L (22-29) mmol/L Anion Gap 15.7 (5-19) BUN 12 (8-23) mg/dL Creatinine 0.9 (0.5-0.9) mg/dL GFR Calculation 62.5 L (90-130) mL/min Glucose 93 (65-115) mg/dL Calculated Osmolal ity 285 (285-295) mOsm/k g Lactic Acid 1.1 (0.5-2.2) mmol/L Calcium 8.9 (8.5-10.5) mg/dL Total Bilirubin 0.2 (0.15-1.2) mg/dL AST 37 H (0-32) U/L ALT 36 H (0-33) U/L Alkaline Phosphata se 89 (35-105) IU/L Troponin T Baselin e (0-10) ng/L C-Reactive Protein 11.6 H (0.0-4.9) mg/L NT-Pro-B Natriuret Pep 727 H (0-125) pg/mL Total Protein 6.5 L (6.6-8.7) g/dL Albumin 3.9 (3.5-5.2) g/dL Globulin 2.6 (1.3-4.6) g/dL Procalcitonin 0.04 (0-0.5) ng/mL SARS-CoV-2 Ag (Rap id) (Negative) 03/21/21 03/21/21 Range/Units 09:25 09:25 WBC (4.0-10.0) 10^3/ uL RBC (4.1-5.3) 10^6/u L Hgb (11.5-15.3) g/dL Hct (37.0-47.0) % MCV (81-99) fL MCH (28.0-34.0) pg MCHC (30.0-36.0) g/dL RDW (12.1-15.1) % Plt Count (130-400) 10^3/c mm MPV (7.4-10.4) fL Neut % (Auto) % Lymph % (Auto) % [place] % (Auto) % Eos % (Auto) % Baso % (Auto) % Neut # (Auto) (1.8-7.7) 10^3/u L Lymph # (Auto) (0.8-4.8) 10^3/u L [place] # (Auto) (0.2-0.9) 10^3/u L Eos # (Auto) (0.0-0.8) 10^3/u L Baso # (Auto) (0.0-0.1) 10^3/u L Nucleated RBC % (a uto) % Nucleated RBCs # /100WBC Sodium (136-145) mmol/L Potassium (3.5-5.1) mmol/L Chloride (98-107) mmol/L Carbon Dioxide (22-29) mmol/L Anion Gap (5-19) BUN (8-23) mg/dL Creatinine (0.5-0.9) mg/dL GFR Calculation (90-130) mL/min Glucose (65-115) mg/dL Calculated Osmolal ity (285-295) mOsm/k g Lactic Acid (0.5-2.2) mmol/L Calcium (8.5-10.5) mg/dL Total Bilirubin (0.15-1.2) mg/dL AST (0-32) U/L ALT (0-33) U/L Alkaline Phosphata se (35-105) IU/L Troponin T Baselin e 30 H (0-10) ng/L C-Reactive Protein (0.0-4.9) mg/L NT-Pro-B Natriuret Pep (0-125) pg/mL Total Protein (6.6-8.7) g/dL Albumin (3.5-5.2) g/dL Globulin (1.3-4.6) g/dL Procalcitonin (0-0.5) ng/mL SARS-CoV-2 Ag (Rap id) Negative (Negative) Imaging Data^: CXR: Radiologist's impression: [address] [address] XRay Report Signed Patient: Kristin Argueta Unit #: [id number] : 1955 Age/Sex: 65 / F ADM Date: 03/21/21 Loc: ER Room/Bed: Attending Dr: Ordering Provider/Ordering MD: Addis Harley Date of Service: 03/21/21 Procedure(s): XR chest 1V portable [id number] Accession Number(s): [id number] Report Number: [id number] WS: [id number] Portable AP upright chest, 03/21/2021 Clinical Data: cough, R chest pain Comparison: Portable chest, 10/14/2018. Findings: There are small bilateral pleural effusions. There is minimal opacity over the surface of the left diaphragm and at the right costophrenic angle which could represent atelectasis and/or pneumonia. No nodules or masses are seen. The heart is normal. The pulmonary vascularity is not increased. No pneumothorax is seen. The aortic arch is minimally tortuous. There is absence of the distal right clavicle. Impression: 1. Small bilateral pleural effusions. 2. Minimal opacity over surface of left diaphragm and at the right costophrenic angle which could represent consolidation and/or atelectasis. 3. Atherosclerosis. Dictated By: Mindy Durbin MD Signed By: Mindy Durbin MD Signed Date/Time: 03/21/2157 DD/ EKG Data^: EKG 1: EKG interpretation date: 03/21/21 EKG interpretation time: 09:57 Interpretation: Sinus rhythm Rate [address] elevation or depression changes noted Discharge Plan Discharge Patient Disposition: Home Clinical Impression: Pneumonia Qualifiers: Pneumonia type: due to unspecified organism Laterality: left Lung location: lower lobe of lung Qualified Code(s): J18.9 - Pneumonia, unspecified organism Condition: Stable Prescriptions: New doxycycline monohydrate 100 mg capsule 100 mg PO Q12H 10 Days Qty: 20 RF: 0 Augmentin 875-125 mg tablet 1 tab PO Q12H 7 Days Qty: 14 RF: 0 Tessalon Perles 100 mg capsule 100 mg PO TID PRN (Reason: cough) Qty: 20 RF: 0 No Action gabapentin 300 mg capsule 300 mg PO BID RF: 0 albuterol sulfate 2.5 mg /3 mL (0.083 %) solution for nebulization 2.5 mg inhalation Q4H PRN (Reason: shortness of breath or wheezing) Qty: 90 RF: 0 azithromycin 250 mg tablet See Rx Instructions PO .COMPLEX Qty: 6 RF: 0 opium tincture 10 mg/mL (morphine) tincture 0.3 ml PO TID RF: 0 acyclovir 400 mg tablet 400 mg PO BID RF: 0 ropinirole 4 mg tablet 4 mg PO TID RF: 0 topiramate 50 mg tablet 50 mg PO BID Qty: 60 RF: 2 duloxetine [Cymbalta] 60 mg capsule,delayed release(DR/EC) 120 mg PO QAM Qty: 60 RF: 2 tizanidine 4 mg Tablet 4 mg PO TID RF: 0 Symbicort 160-4.5 mcg/actuation Hfa Aerosol Inhaler 2 puff INHALATION Q12H RF: 0 Seroquel 100 mg tablet 100 mg PO BEDTIME RF: 0 mirtazapine 45 mg tablet 45 mg PO BEDTIME RF: 0 Discharge Orders: Discharge ED (Routine); Ordered 03/21/21 Ordered By: Addis Harley Referrals: Sae Oneal DO [Primary Care Provider] - Patient Instructions: Pneumonia (ED) Activity Restrictions/Additional Instructions: As we discussed you need to quarantine until your PCR COVID results come in. If positive you need to continue quarantining for a full 10 days from symptom onset. Quarantine can be lifted if symptoms are improving and you are fever free without medications. You need to return to the emergency department for worsening chest pain, shortness of breath, difficulty breathing, uncontrollable fevers, generally feeling ill, or any other concerns you may have. Coding Level of Care Code ED Brush Loader And Handle Attacher for Carlos Hernandez Exam Comprehensive
[2021-03-21] MEDS: ipratropium-albuterol 3 mL Neb INHALATION (08:59)
[2021-03-21 09:00] VITALS: PULSE 87; RESP 16; O2SAT 97
[2021-03-21 09:08] VITALS: PULSE 88
[2021-03-21 09:39] LABS: Basophils # 0.1 10^3/uL (0.0-0.1); Basophils % 0.8 %; Eosinophils # 0.1 10^3/uL (0.0-0.8); Eosinophils % 1.6 %; Hematocrit 37.4 % (37.0-47.0); Hemoglobin 11.7 g/dL (11.5-15.3); Lymphocytes # 2.4 10^3/uL (0.8-4.8); Lymphocytes % 31.9 %; Mean Corpuscular HGB Conc 31.3 g/dL (30.0-36.0); Mean Corpuscular Hemoglobin 26.1 pg (28.0-34.0); Mean Corpuscular Volume 83.5 fL (81-99); Mean Platelet Volume 9.4 fL (7.4-10.4); Monocytes # 0.8 10^3/uL (0.2-0.9); Monocytes % 10.8 %; Neutrophils # 4.16 10^3/uL (1.8-7.7); Neutrophils % 54.8 %; Nucleated Red Blood Cells % 0 %; Platelet Count 366 10^3/cmm (130-400); Red Blood Count 4.48 10^6/uL (4.1-5.3); Red Cell Distribution Width 17.3 % (12.1-15.1); White Blood Count 7.6 10^3/uL (4.0-10.0)
[2021-03-21 10:06] LABS: Lactic Sepsis W/Reflex 1.1 mmol/L (0.5-2.2)
[2021-03-21 10:07] LABS: Troponin(5th) Baseline 30 ng/L (0-10)
[2021-03-21 10:16] LABS: NT Pro B Type Natriuretic Pept 727 pg/mL (0-125); Procalcitonin 0.04 ng/mL (0-0.5)
[2021-03-21 10:18] LABS: SARS Covid-2 Antigen Negative (Negative)
[2021-03-21 10:27] LABS: Alanine Aminotransferase 36 U/L (0-33); Albumin Level 3.9 g/dL (3.5-5.2); Alkaline Phosphatase 89 IU/L (35-105); Anion Gap 15.7 (5-19); Aspartate Amino Transferase 37 U/L (0-32); Blood Urea Nitrogen 12 mg/dL (8-23); C Reactive Protein 11.6 mg/L (0.0-4.9); Calcium 8.9 mg/dL (8.5-10.5); Carbon Dioxide 21 mmol/L (22-29); Chloride 105 mmol/L (98-107); Globulin 2.6 g/dL (1.3-4.6); Glomerular Filtration Rate 62.5 mL/min (90-130); Glucose 93 mg/dL (65-115); Osmolality Calculated 285 mOsm/kg (285-295); Potassium 3.7 mmol/L (3.5-5.1); Sodium 138 mmol/L (136-145); Total Bilirubin 0.2 mg/dL (0.15-1.2); Total Protein 6.5 g/dL (6.6-8.7)
[2021-03-21 10:53] VITALS: BP 133/76; PULSE 91; RESP 18; O2SAT 100
[2021-03-22 15:17] LABS: Coronavirus Test Green County Not Detected
--- NOTE | 2021-03-22 18:19 | PC.NURSE ---
pt notified of negative covid result
== END 2021-03-21 10:54 | disposition home or self-care (01) ==
PROVIDERS: Emergency Provider Physician Assistant; PCP Internal Medicine
DX: J18.9 Pneumonia, unspecified organism (principal); F17.210 Nicotine dependence, cigarettes, uncomplicated; Z20.822 Contact with and (suspected) exposure to COVID-19
CPT/HCPCS: 71045; 80053; 83605; 83880; 84145; 84484; 85025; 86140; 87426; 87635; 93005; 94640; 99284

== ENCOUNTER → 2021-05-28 08:22 | Outpatient (BNVA) | payer MEDICAID, SELFPAY ==
[2020-04-27 12:14] VITALS: BP 146/91; BMI 31.8
== END ==
PROVIDERS: PCP Internal Medicine; Visit Provider Nurse Practitioner
DX: F41.3 Other mixed anxiety disorders; F12.20 Cannabis dependence, uncomplicated; F60.3 Borderline personality disorder; F17.210 Nicotine dependence, cigarettes, uncomplicated; F43.12 Post-traumatic stress disorder, chronic
CPT/HCPCS: 99214

== ENCOUNTER → 2021-10-04 10:25 | Outpatient (BNVA) | payer MEDICAID, SELFPAY ==
[2020-04-27 12:14] VITALS: BP 146/91; BMI 31.8
== END ==
PROVIDERS: PCP Internal Medicine; Visit Provider Nurse Practitioner
DX: F43.12 Post-traumatic stress disorder, chronic (principal); F41.3 Other mixed anxiety disorders; F17.210 Nicotine dependence, cigarettes, uncomplicated; F60.3 Borderline personality disorder; F12.20 Cannabis dependence, uncomplicated
CPT/HCPCS: 80061; 83036; 99214

== ENCOUNTER → 2021-10-20 14:31 | Outpatient (BNVA) | payer MEDICAID, SELFPAY ==
[2021-10-07 09:52] VITALS: BP 139/86; BMI 31.6
== END ==
PROVIDERS: PCP Internal Medicine; Visit Provider Nurse Practitioner
DX: Z20.822 Contact with and (suspected) exposure to COVID-19 (principal)
CPT/HCPCS: 87635

== ENCOUNTER → 2021-12-20 11:15 | Outpatient (BNVA) | payer MEDICAID, SELFPAY ==
[2021-10-07 09:52] VITALS: BP 139/86; BMI 31.6
== END ==
PROVIDERS: PCP Internal Medicine; Visit Provider Nurse Practitioner
DX: F60.3 Borderline personality disorder (principal); F43.12 Post-traumatic stress disorder, chronic; F41.3 Other mixed anxiety disorders; F17.210 Nicotine dependence, cigarettes, uncomplicated
CPT/HCPCS: 99214

== ENCOUNTER 2023-11-09 09:14 | Emergency (ER) | payer MEDICARE, MEDICAID, SELFPAY ==
[2021-10-07 09:52] VITALS: BP 139/86; BMI 31.6
[2023-11-09 09:36] VITALS: BP 154/102; PULSE 91; RESP 16; TEMP 36.6; O2SAT 100; BMI 28.3
--- NOTE | 2023-11-09 09:57 | ED_ITS ---
HPI - Back Pain/Injury General: Chief Complaint: Back Pain/Injury Stated Complaint: back pain Time Seen by Provider: 11/09/23 09:43 Source: patient Mode of arrival: ambulatory Limitations: no limitations History of Present Illness: Patient is a very nice 68-year-old female presents to ED today with complaint of lower back pain over the past 3 weeks. Patient states she has a history of lower back surgery that was performed at [facility] [place] several years ago. She is unsure of specific procedure but states she has a cage and screws and spacers in between my discs . Patient states she has been doing okay since the surgery but states about 3 weeks ago she was carrying heavy groceries up her 15 stairs and began noticing back pain following this. She has been taking OTC anti- inflammatories and Tylenol without any relief. There is no radicular symptoms. She is not having any numbness, tingling, loss of sensation, or weakness to her legs. She is urinating and defecating normally. Denies saddle anesthesia. She is ambulatory here without difficulty or assistance. MD elicited complaint: back pain Pertinent past history: prior back pain Onset (ago): week(s) Timing: constant Severity: moderate Similar Symptoms Previously: No Location: lumbar spine Radiation: none Exacerbating factors: walking and lifting Relieving factors: none Context: while lifting (and going upstairs) Associated symptoms: Reports difficulty walking (secondary to low back pain); Deny abdominal pain, chills, dysuria, fever(s) or hematuria Work related injury: No Review of Systems Const: Denies: fever(s), chills or body aches Card: Denies: chest pain Resp: Denies: dyspnea GI: Denies: abdominal pain : Denies: flank pain, dysuria or hematuria Musc: Reports: back pain; Denies: neck pain, extremity pain, extremity swelling, joint pain or joint swelling Skin/Breast: Denies: rash Neuro: Reports: difficulty walking (secondary to low back pain); Denies: headache(s), numbness in extremities, weakness in extremities or sensory changes [facility] ED PFSH: Medical History Other stimulant dependence, uncomplicated Psychiatric care Post-traumatic stress disorder, unspecified Nicotine dependence, cigarettes, uncomplicated Borderline personality disorder Cannabis dependence, uncomplicated Anxiety disorder, unspecified Post-traumatic stress disorder, chronic Family History Father CAD (coronary artery disease) Cancer Mother CAD (coronary artery disease) Cancer Brother CAD (coronary artery disease) Sister Cancer Social History Smoking and tobacco/nicotine status: current every day tobacco/nicotine user cigarettes Packs smoked per day: 0.5 Years cigarettes smoked: 58 [ Other cigarette details: vaps also] Quit status (tobacco/nicotine): not considering quitting Second hand smoke exposure: No Alcohol intake: never Substance/Drug Use: current Substance/Drug use frequency: daily Other substance/drug use details: no medical card Adopted: No Caregiver/support person: Yes (twice a week) Lives independently: Yes Household members: none Housing: Apartment Marital status: Marital status details: since 2004 Number of children: 2 Number of grandchildren: 5 Highest education level completed: 9th Grade service: No Current occupational status: disabled Current occupational exposures/hazards: No Pets and animals: Yes (male - stays inside) Pets & animals: dog(s) Leisure activites: music, games, reading and other Leisure activities details: watch TV Sexually active: No Do you think of yourself as: Straight/Heterosexual Current gender identity: Female Katie/Taoist: Anglican Special katie needs: No Agree to transfusion: Yes Female Reproductive History: Para: 2 Spontaneous abortions: No Physical Exam Const: COMMON NORMALS: no acute distress, average body habitus, patient oriented x3, no limitations, healthy appearing, alert and well nourished Resp: COMMON NORMALS: normal respiratory effort and clear to auscultation bilaterally AUSCULTATION: clear to auscultation bilaterally Cardio: COMMON NORMALS: regular rate and regular rhythm RATE: regular rate RHYTHM: regular rhythm GI: COMMON NORMALS: Normal to inspection, nondistended, normoactive bowel soun ds present, Soft to palpation, non-tender and no masses PALPATION: Yes Soft to palpation : COMMON NORMALS: Yes no CVA tenderness BLADDER/KIDNEY EXAM: Yes no CVA tenderness Back/Pelvis: COMMON NORMALS: no CVA tenderness, thoraco-lumbar ROM normal and straight leg raise negative bilaterally THORACIC SPINE/UPPER BACK: No thoracic spinal tenderness, No paraspinal muscle tenderness and No paraspinal muscle spasm LUMBAR SPINE/LOWER BACK: Yes lumbar spinal tenderness, No paraspinal muscle tenderness, No paraspinal muscle spasm and Yes straight leg raise negative bilaterally PELVIS: Yes buttocks normal and No sciatic notch tenderness SACROILIAC JOINTS: Yes SI joints normal SACRUM: no tenderness COCCYX: no tenderness Extremity: COMMON NORMALS: normal to inspection, capillary refill normal, no joint enlargement, no clubbing, cyanosis or edema, no calf tenderness and no pedal edema GENERAL: Yes normal exam except as noted Neuro: COMMON NORMALS: patient oriented x3, moves all extremities, no focal motor deficits, no sensory deficits noted and gait normal SENSORIUM/ORIENTATION: Yes alert Skin: COMMON NORMALS: no rashes or lesions noted GENERAL SKIN EXAM: no rashes or lesions noted Course Vital Signs: Vital signs: Vital Signs Temperature 97.9 F 11/09/23 09:36 Pulse Rate 91 11/09/23 09:36 Respiratory Rate 16 11/09/23 09:36 Blood Pressure 154/102 11/09/23 09:36 Pulse Oximetry 100 11/09/23 09:36 Oxygen Delivery Me thod Room Air 11/09/23 09:36 MDM - Back Pain/Injury Medical Decision Making XR negative. No red flag symptoms by history or physical examination today. She can continue the OTC anti-inflammatories and Tylenol and continue the zanaflex that she takes regularly. Will place her on a steroid taper. Recommend follow-up with her primary care provider if symptoms do not seem to be improving. Medical Records I reviewed the patient's medical records. Labs Radiology Impressions Lumbar Spine X-Ray 11/09/23 10:05 IMPRESSION: Stable postoperative lumbar spine. All radiology interpretation(s) finalized by discharge Discharge Plan Discharge Patient Disposition: Home Clinical Impression: Low back pain Qualifiers: Chronicity: acute Back pain laterality: midline Sciatica presence: without sciatica Qualified Code(s): M54.50 - Low back pain, unspecified Condition: Stable Prescriptions: New prednisone 10 mg tablet 10 mg PO DAILY 6 Days Qty: 20 0RF Rx Instructions: Take 5 tabs on day 1-2, 4 tabs on day 3, 3 tabs on day 4, 2 tabs on day 5, and 1 tab on day 6 No Action azathioprine 50 mg tablet 100 mg PO DAILY acyclovir 400 mg tablet 400 mg PO BID ropinirole 4 mg tablet 4 mg PO TID loperamide 2 mg capsule 2 mg PO Q6H PRN opium tincture 10 mg/mL (morphine) tincture 1 ml PO QID PRN (Reason: diarrhea) metoprolol succinate [Toprol XL] 25 mg tablet extended release 24 hr 25 mg PO DAILY fluticasone propionate [Flonase Allergy Relief] 50 mcg/actuation spray,suspension 2 spray intranasal DAILY Qty: 16 0RF Rx Instructions: administer into each nostril levocetirizine 5 mg tablet 5 mg PO DAILY prednisone dose pk PO duloxetine 60 mg capsule,delayed release(DR/EC) See Rx Instructions .ROUTE .COMPLEX Qty: 60 2RF Dose Instruction: take 1 capsule BY MOUTH TWICE DAILY Rx Instructions: take 1 capsule BY MOUTH TWICE DAILY mirtazapine 45 mg tablet 45 mg PO DAILY Qty: 30 2RF Discharge Orders: Discharge ED (Routine); Ordered 11/09/23 Ordered By: Addis Harley Referrals: Sae Oneal DO [Primary Care Provider] - Activity Restrictions/Additional Instructions: As we discussed you can continue taking your Zanaflex as well as [id number] analgesics such as Motrin and Tylenol like you have been doing. We will place you on steroids. I want you to follow-up with your primary care provider for further evaluation if symptoms do not seem to be improving. Coding Level of Care Code ED Microelectronics Technician for Carlos Hernandez
--- NOTE | 2023-11-09 10:05 | XRR_ITS ---
PROCEDURE INFORMATION: Exam: XR Lumbosacral Spine Exam date and time: 11/09/2023 10:22 AM Age: 68 years old Clinical indication: Low back pain; Prior surgery; Surgery date: 6+ months; Surgery type: Lumbar TECHNIQUE: Imaging protocol: Radiologic exam of the lumbosacral spine. Views: 2 or 3 views. COMPARISON: CR XR lumbar spine 2-3V* [id number] 09/08/2020 11:48 AM FINDINGS: Bones/joints: There is stable intact posterior metallic fusion hardware with intervening disc spacers extending from L2-L5. Laminectomy defect is again seen. Bone grafting is again seen which does not appear solid. Unchanged straightening of the lumbar lordosis with persistent mild anterolisthesis of L4 on L5. Nonsurgical levels are unremarkable. Soft tissues: Unremarkable. XR/XR lumbar spine 2-3V* [id number] IMPRESSION: Stable postoperative lumbar spine.
[2023-11-09] MEDS: dexamethasone 10 mg/mL INJ 8 MG IM (10:18)
[2023-11-09] MEDS: ketorolac 30 mg/mL INJ IM (10:19)
== END 2023-11-09 11:00 | disposition home or self-care (01) ==
PROVIDERS: Emergency Provider Physician Assistant; PCP Internal Medicine
DX: M54.50 Low back pain, unspecified (principal); F17.210 Nicotine dependence, cigarettes, uncomplicated
CPT/HCPCS: 72100; 96372; 99284; J1100; J1885

== ENCOUNTER 2023-12-10 12:15 | Emergency (ER) | payer MEDICARE, MEDICAID, SELFPAY ==
[2021-10-07 09:52] VITALS: BP 139/86; BMI 31.6
[2023-12-10 12:57] VITALS: BP 124/85; PULSE 78; RESP 18; TEMP 36.6; O2SAT 97
--- NOTE | 2023-12-10 13:30 | ED_ITS ---
HPI - Back Pain/Injury General: Chief Complaint: Back Pain/Injury Stated Complaint: back pain Time Seen by Provider: 12/10/23 13:29 History of Present Illness: 68-year-old female comes in today with l ow back pain radiating down the left leg. Patient has a history of lumbar fusion approximately 3 years ago. Patient for the most part does well but does have flareups. Patient was last seen in this ER for similar episode in October. Patient appears nontoxic. Patient appears in no acute distress. Patient has a history of IBS, depression, and HSV. Review of Systems General: Reports: 10 or more systems reviewed and unremarkable except in HPI and below Musc: Reports: back pain PFSH ED PFSH: Medical History Other stimulant dependence, uncomplicated Psychiatric care Post-traumatic stress disorder, unspecified Nicotine dependence, cigarettes, uncomplicated Borderline personality disorder Cannabis dependence, uncomplicated Anxiety disorder, unspecified Post-traumatic stress disorder, chronic Family History Father CAD (coronary artery disease) Cancer Mother CAD (coronary artery disease) Cancer Brother CAD (coronary artery disease) Sister Cancer Social History Smoking and tobacco/nicotine status: current every day tobacco/nicotine user cigarettes Packs smoked per day: 0.5 Years cigarettes smoked: 58 [ Other cigarette details: vaps also] Quit status (tobacco/nicotine): not considering quitting Second hand smoke exposure: No Alcohol intake: never Substance/Drug Use: current Substance/Drug use frequency: daily Other substance/drug use details: no medical card Adopted: No Caregiver/support person: Yes (twice a week) Lives independently: Yes Household members: none Housing: Apartment Marital status: Marital status details: since 2004 Number of children: 2 Number of grandchildren: 5 Highest education level completed: 9th Grade service: No Current occupational status: disabled Current occupational exposures/hazards: No Pets and animals: Yes (male - stays inside) Pets & animals: dog(s) Leisure activites: music, games, reading and other Leisure activities details: watch TV Sexually active: No Do you think of yourself as: Straight/Heterosexual Current gender identity: Female Katie/Christian: Tenriism Special katie needs: No Agree to transfusion: Yes Female Reproductive History: Para: 2 Spontaneous abortions: No Physical Exam Const: COMMON NORMALS: alert HENMT: COMMON NORMALS: normocephalic HEAD & SCALP: normocephalic Neck/C-Spine: COMMON NORMALS: full ROM Resp: COMMON NORMALS: normal respiratory effort and clear to auscultation bilaterally AUSCULTATION: clear to auscultation bilaterally Cardio: COMMON NORMALS: regular rate and regular rhythm RATE: regular rate RHYTHM: regular rhythm Back/Pelvis: COMMON NORMALS: thoracic and lumbar spine normal to inspection Extremity: COMMON NORMALS: full ROM Neuro: SENSORIUM/ORIENTATION: Yes alert Skin: COMMON NORMALS: turgor normal GENERAL SKIN EXAM: turgor normal Course Vital Signs: Vital signs: Vital Signs Temperature 97.8 F 12/10/23 12:57 Pulse Rate 78 12/10/23 12:57 Respiratory Rate 18 12/10/23 12:57 Blood Pressure 124/85 12/10/23 12:57 Pulse Oximetry 97 12/10/23 12:57 Oxygen Delivery Me thod Room Air 12/10/23 12:57 MDM - Back Pain/Injury Medical Decision Making 68-year-old female comes in today for complaints of exacerbation of back pain. Patient does have a history of chronic back pain. Patient reports increased symptoms with radiation of pain down the left leg. Patient appears nontoxic. Skin is warm and dry. Patient denies any injury. Vital signs are normal. Differential diagnosis includes exacerbation of chronic back pain, intervertebral disc disease, facet arthritis, lumbar radiculopathy. Patient was given medication including ketorolac 30 mg, 10 mg of dexamethasone, and 1 hydrocodone 7-1/2 mg. Patient be continued on hydrocodone, celecoxib, and prednisone for the next 5 days and recommended to continue activity as tolerated for better control of back pain. Patient reports understanding of care plan and need for follow-up with primary care for further evaluation and treatment. No radiology studies performed this visit Discharge Plan Discharge Patient Disposition: Home Clinical Impression: Lumbar radiculopathy Condition: Stable Prescriptions: New prednisone 20 mg tablet 20 mg PO BID 5 Days Qty: 10 0RF hydrocodone-acetaminophen 5-325 mg tablet 1 tab PO Q6H PRN (Reason: pain (scale score 7-10)) Qty: 10 0RF celecoxib 200 mg capsule 200 mg PO BID Qty: 20 0RF No Action azathioprine 50 mg tablet 100 mg PO DAILY acyclovir 400 mg tablet 400 mg PO BID ropinirole 4 mg tablet 4 mg PO TID loperamide 2 mg capsule 2 mg PO Q6H PRN opium tincture 10 mg/mL (morphine) tincture 1 ml PO QID PRN (Reason: diarrhea) metoprolol succinate [Toprol XL] 25 mg tablet extended release 24 hr 25 mg PO DAILY fluticasone propionate [Flonase Allergy Relief] 50 mcg/actuation spray,suspension 2 spray intranasal DAILY Qty: 16 0RF Rx Instructions: administer into each nostril levocetirizine 5 mg tablet 5 mg PO DAILY prednisone dose pk PO duloxetine 60 mg capsule,delayed release(DR/EC) See Rx Instructions .ROUTE .COMPLEX Qty: 60 2RF Dose Instruction: take 1 capsule BY MOUTH TWICE DAILY Rx Instructions: take 1 capsule BY MOUTH TWICE DAILY mirtazapine 45 mg tablet 45 mg PO DAILY Qty: 30 2RF Discharge Orders: Discharge ED (Routine); Ordered 12/10/23 Ordered By: Radames Cary Referrals: Sae Oneal DO [Primary Care Provider] - Patient Instructions: Opioid Safety, Pain Management Activity Restrictions/Additional Instructions: Maintain activity as tolerated. Follow-up with primary care for further evaluation and treatment. Return to ED for new concerns. Coding Level of Care Code ED Medical Biller/Coder for Carlos Hernandez
[2023-12-10] MEDS: ketorolac 30 mg/mL INJ IM (14:23)
[2023-12-10] MEDS: HYDROcodone-acetaminophen 7.5-325 mg Tablet 1 TAB PO (14:24)
[2023-12-10] MEDS: dexamethasone 10 mg/mL INJ IM (14:24)
== END 2023-12-10 14:56 | disposition home or self-care (01) ==
PROVIDERS: Emergency Provider Nurse Practitioner Family; PCP Internal Medicine
DX: M54.16 Radiculopathy, lumbar region (principal); F17.210 Nicotine dependence, cigarettes, uncomplicated
CPT/HCPCS: 96372; 99284; J1100; J1885

== ENCOUNTER 2023-12-14 05:42 | Emergency (ER) | payer MEDICAID, SELFPAY ==
[2021-10-07 09:52] VITALS: BP 139/86; BMI 31.6
[2023-12-14 05:49] VITALS: BP 157/95; PULSE 87; RESP 16; TEMP 36.7; O2SAT 95; BMI 25.4
[2023-12-14 05:53] VITALS: BP 157/95; PULSE 81; RESP 18; TEMP 36.7; O2SAT 93
--- NOTE | 2023-12-14 06:14 | ED_ITS ---
HPI - Extremity Problem General: Chief complaint: Extremity Problem,Nontraumatic Stated complaint: Sciatin Nerve Time Seen by Provider: 12/14/23 05:44 Source: patient Mode of arrival: ambulatory History of Present Illness: 68 yo female present to the ER with comp laints of back pain with pain radiating into her L leg. She has a remote history of back surgery with L2-L5 laminectomy with fusion, intervertebral disc spacer, pedicle screws and rods. Pt reports pain from mid low back radiating through the L buttock and to the mid L thigh. Pt denies fecal incontinence or urinary retention. No saddle anesthesia. CAnnot recal precipitating event. Better with rest, worse with activity (walking bending over etc.). No foot drop. MD Complaint: extremity pain (back) Onset (ago): week(s) Location: left and lower extremity Relieving factors: rest Exacerbating factors: range of motion, walking and exertion Associated symptoms: Deny chest pain, fever(s) or rash Review of Systems Const: Denies: fever(s) or chills Card: Denies: chest pain Resp: Denies: dyspnea GI: Denies: abdominal pain : Denies: dysuria, urinary frequency or urinary urgency Musc: Reports: back pain and extremity pain; Denies: neck pain Skin/Breast: Denies: rash PFSH ED PFSH: Medical History Other stimulant dependence, uncomplicated Psychiatric care Post-traumatic stress disorder, unspecified Nicotine dependence, cigarettes, uncomplicated Borderline personality disorder Cannabis dependence, uncomplicated Anxiety disorder, unspecified Post-traumatic stress disorder, chronic Family History Father CAD (coronary artery disease) Cancer Mother CAD (coronary artery disease) Cancer Brother CAD (coronary artery disease) Sister Cancer Social History Smoking and tobacco/nicotine status: current every day tobacco/nicotine user cigarettes Packs smoked per day: 0.5 Years cigarettes smoked: 58 [ Other cigarette details: vaps also] Quit status (tobacco/nicotine): not considering quitting Second hand smoke exposure: No Alcohol intake: never Substance/Drug Use: current Substance/Drug use frequency: daily Other substance/drug use details: no medical card Adopted: No Caregiver/support person: Yes (twice a week) Lives independently: Yes Household members: none Housing: Apartment Marital status: Marital status details: since 2004 Number of children: 2 Number of grandchildren: 5 Highest education level completed: 9th Grade service: No Current occupational status: disabled Current occupational exposures/hazards: No Pets and animals: Yes (male - stays inside) Pets & animals: dog(s) Leisure activites: music, games, reading and other Leisure activities details: watch TV Sexually active: No Do you think of yourself as: Straight/Heterosexual Current gender identity: Female Katie/Yazdanism: Jain Special katie needs: No Agree to transfusion: Yes Female Reproductive History: Para: 2 Spontaneous abortions: No Physical Exam Const: GENERAL APPEARANCE: cooperative and comfortable ORIENTATION/CONSCIOUSNESS: Yes awake, Yes oriented to person, Yes oriented to place and Yes oriented to time HENMT: COMMON NORMALS: normocephalic, atraumatic and hearing grossly normal bilaterally HEAD & SCALP: normocephalic and atraumatic Resp: COMMON NORMALS: normal respiratory effort, No retractions, No use of accessory muscles and clear to auscultation bilaterally AUSCULTATION: clear to auscultation bilaterally Extremity: COMMON NORMALS: normal to inspection, capillary refill normal, no clubbing, cyanosis or edema, no calf tenderness and no pedal edema Neuro: SENSORIUM/ORIENTATION: Yes oriented to person, Yes oriented to place and Yes oriented to time OTHER: Dorsum plantar flex strength 5 of 5 sensation lower extremities normal straight leg raising negative deep tendon reflexes +2/4 at the patellar tendons bilaterally +1/4 at the Achilles. Skin: COMMON NORMALS: no rashes or lesions noted GENERAL SKIN EXAM: no rashes or lesions noted OTHER: No sign of dermatomal/vesicular rash Course Vital Signs: Vital signs: Vital Signs Temperature 98.1 F 12/14/23 05:53 Pulse Rate 81 12/14/23 05:53 Respiratory Rate 18 12/14/23 06:29 Blood Pressure 157/95 12/14/23 05:53 Pulse Oximetry 95 12/14/23 06:29 Oxygen Delivery Me thod Room Air 12/14/23 05:53 MDM - Extremity (Nontraumatic) Medical Decision Making Lumbar radiculopathy improved with medications given. Discharged home on tizanidine and diclofenac complete the steroid taper given previously. Encourage patient to have follow-up with orthopedic spine surgery offered to set appoint with Dr. Florez she has been seen at [facility] by the back surgeon she wants to go back and see that particular surgeon she will contact them for follow-up return if is further problems. No imaging done no recent trauma she has had x- rays relatively recently that were unremarkable. Medical Records I reviewed the patient's medical records. Lab Data I reviewed the patient's lab results. No radiology studies performed this visit Discharge Plan Discharge Patient Disposition: Home Clinical Impression: Lumbar radiculopathy Condition: Stable Prescriptions: New tizanidine 4 mg tablet 4 mg PO Q6H PRN (Reason: muscle spasticity) Qty: 20 0RF Rx Instructions: do not exceed 3 doses per 24 hrs diclofenac sodium 75 mg tablet,delayed release (DR/EC) 75 mg PO Q12H PRN (Reason: pain) Qty: 20 0RF Discontinued celecoxib 200 mg capsule 200 mg PO BID Qty: 20 0RF No Action azathioprine 50 mg tablet 100 mg PO QAM acyclovir 400 mg tablet 400 mg PO QAM ropinirole 4 mg tablet 4 mg PO TID opium tincture 10 mg/mL (morphine) tincture See Rx Instructions .ROUTE .COMPLEX Rx Instructions: 0.3 ml po tid prn prednisone 20 mg tablet 20 mg PO BID 5 Days Qty: 10 0RF Rx Instructions: for 5 days (rx filled 12/10/23) hydrocodone-acetaminophen 5-325 mg tablet 1 tab PO Q6H PRN (Reason: pain (scale score 7-10)) Qty: 10 0RF tizanidine 4 mg tablet 4 mg PO Q8H PRN (Reason: Spasms) metoprolol succinate 50 mg tablet extended release 24 hr 50 mg PO QAM Aspir-81 81 mg Tablet,Delayed Release (Dr/Ec) 81 mg PO .THREE TIMES A WEEK Probiotic Blend 2 billion cell-50 mg Capsule 1 cap PO DAILY mirtazapine 45 mg tablet 45 mg PO BEDTIME Flonase Allergy Relief 50 mcg/actuation spray,suspension 2 spray intranasal DAILY PRN (Reason: Allergy Symptoms) Rx Instructions: administer into each nostril duloxetine 60 mg capsule,delayed release(DR/EC) 60 mg PO BID Discharge Orders: Discharge ED (Routine); Ordered 12/14/23 Ordered By: Damien Montano Referrals: Sae Oneal DO [Primary Care Provider] - Discharge Diet: Usual diet Discharge Activity: Resume usual activity Patient Instructions: Opioid Safety, Pain Management Activity Restrictions/Additional Instructions: Thank you for choosing [facility] for your healthcare needs today. Please realize this is an emergency room and that we are providing you with a medical screening exam and this may not be complete and all inclusive of all the testing and or work up that you may need to determine your ailment or severity of your illness. It is very important that you follow up as instructed or that you return to the Emergency Department should you have concerns or if your condition changes or worsens in any way. You are seen today for low back pain with pain radiating into your left leg (radiculopathy). Case management will make arrangements for you to follow-up with orthopedic spine surgery. Coding Level of Care Code ED Executive Creative Director for Carlos Hernandez
[2023-12-14] MEDS: ketorolac 30 mg/mL INJ 15 MG IVP (06:26)
[2023-12-14] MEDS: dexamethasone 10 mg/mL INJ IVP (06:27)
[2023-12-14 06:29] VITALS: RESP 18; O2SAT 95
[2023-12-14] MEDS: morphine 4 mg/mL SDV 1 mL IVP (06:29)
[2023-12-14] MEDS: orphenadrine 30 mg/mL Inj 2 mL 60 MG IVP (06:32)
== END 2023-12-14 08:57 | disposition home or self-care (01) ==
PROVIDERS: Emergency Provider Family Medicine; PCP Internal Medicine
DX: M54.16 Radiculopathy, lumbar region (principal); Z79.82 Long term (current) use of aspirin; F17.210 Nicotine dependence, cigarettes, uncomplicated
CPT/HCPCS: 96374; 96375; 99284; J1100; J1885; J2270; J2360

== ENCOUNTER 2024-12-12 03:43 | Emergency (ER) | payer MEDICAID, SELFPAY ==
[2021-10-07 09:52] VITALS: BP 139/86; BMI 31.6
[2024-12-12 03:54] VITALS: BP 142/102; PULSE 93; RESP 16; TEMP 37.2; O2SAT 100; BMI 23.9
--- NOTE | 2024-12-12 04:08 | W.ED.BACK ---
HPI - Back Pain/Injury General: Chief Complaint: Back Pain/Injury Stated Complaint: Back Pain Time Seen by Provider: 12/12/24 03:54 History of Present Illness: 69-year-old female presenting at 4 AM with 1 month of worsening lower back pain. She has some degree of chronic back pain following an L2-L5 fusion surgery a few years ago. She notes worsening over a month. The pain is worse with walking or bending. Pain is to either side of her low back more so than the center. Minimal radicular pain. No saddle anesthesia. No new incontinence of bowel or urine. No fever. Related Data Home Medications ?Medication ?Instructions ?Recorded ?Confirmed ropinirole 4 mg tablet 4 mg PO TID 12/25/20 11/16/24 L.acidophil-L.casei-B.bifid-B.longum-FOS 1 cap PO DAILY 12/14/23 11/16/24 2 billion cell-50 mg capsule (Probiotic Blend) aspirin 81 mg tablet,delayed 81 mg PO .THREE TIMES A WEEK 12/14/23 11/16/24 release fluticasone propionate 50 2 spray intranasal DAILY PRN 12/14/23 11/16/24 mcg/actuation nasal Allergy Symptoms spray,suspension (Flonase Allergy Relief) metoprolol succinate 50 mg 50 mg PO QAM 12/14/23 11/16/24 tablet,extended release 24 hr tizanidine 4 mg tablet 4 mg PO Q8H PRN Spasms 12/14/23 11/16/24 opium tincture 10 mg/mL (morphine) 3 mg PO TID PRN 11/16/24 11/16/24 oral Previous Rx's ?Medication ?Instructions ?Recorded tizanidine 4 mg tablet 4 mg PO Q6H PRN muscle spasticity 12/14/23 #20 tabs fluticasone propionate 50 1 spray intranasal DAILY #16 grams 12/17/23 mcg/actuation nasal spray,suspension (Flonase Allergy Relief) duloxetine 60 mg capsule,delayed 60 mg PO DAILY #30 caps 10/19/24 release (Cymbalta) methocarbamol 750 mg tablet 750 mg PO TID #10 tabs 12/12/24 methylprednisolone 4 mg tablets in See Rx Instructions PO .COMPLEX 12/12/24 a dose pack (Medrol (Ulysses)) #21 ea Allergies Allergy/AdvReac Type Severity Reaction Status Date / Time No Known Allergies Allergy Verified 12/12/24 03:58 PFSH ED PFSH: Medical History Other stimulant dependence, uncomplicated Psychiatric care Post-traumatic stress disorder, unspecified Nicotine dependence, cigarettes, uncomplicated Borderline personality disorder Cannabis dependence, uncomplicated Anxiety disorder, unspecified Post-traumatic stress disorder, chronic Family History Father CAD (coronary artery disease) Cancer Mother CAD (coronary artery disease) Cancer Brother CAD (coronary artery disease) Sister Cancer Social History Smoking and tobacco/nicotine status: current every day tobacco/nicotine user cigarettes Packs smoked per day: 0.5 Years cigarettes smoked: 58 [ Other cigarette details: vaps also] Quit status (tobacco/nicotine): not considering quitting Second hand smoke exposure: No Alcohol intake: never Substance/Drug Use: current Substance/Drug use frequency: daily Other substance/drug use details: no medical card Adopted: No Caregiver/support person: Yes (twice a week) Lives independently: Yes Household members: none Housing: Apartment Marital status: Marital status details: since 2004 Number of children: 2 Number of grandchildren: 5 Highest education level completed: 9th Grade service: No Current occupational status: disabled Current occupational exposures/hazards: No Pets and animals: Yes (male - stays inside) Pets & animals: dog(s) Leisure activites: music, games, reading and other Leisure activities details: watch TV Sexually active: No Do you think of yourself as: Straight/Heterosexual Current gender identity: Female Katie/Buddhism: Jainism Special katie needs: No Agree to transfusion: Yes Female Reproductive History: Para: 2 Spontaneous abortions: No Physical Exam Const: GENERAL APPEARANCE: cooperative, well kempt, frail appearing (Mildly) and other (in pain) Chest: CHEST: Yes Symmetrical chest wall rise Resp: COMMON NORMALS: normal respiratory effort and clear to auscultation bilaterally AUSCULTATION: clear to auscultation bilaterally Cardio: COMMON NORMALS: regular rate and regular rhythm RATE: regular rate RHYTHM: regular rhythm Back/Pelvis: OTHER: Examination of the lumbar spine reveals an old fusion scar without cellulitis or inflammation. There is minimal midline tenderness. There is some paraspinal tenderness on either side of the lumbar spine. No pain on leg movement. Psych: APPEARANCE: Yes well kempt Course Vital Signs: Vital signs: Vital Signs Temperature 99 F 12/12/24 03:54 Pulse Rate 93 12/12/24 03:54 Respiratory Rate 18 12/12/24 04:28 Blood Pressure 142/102 12/12/24 03:54 Pulse Oximetry 99 12/12/24 04:28 Oxygen Delivery Me thod Room Air 12/12/24 03:54 MDM - Back Pain/Injury Medical Decision Making Increase in chronic pain. No red flag symptoms. Symptomatic treatment. PCP follow-up. No radiology studies performed this visit Discharge Plan Discharge Patient Disposition: Home Clinical Impression: Low back pain Condition: Stable Prescriptions: New methylprednisolone [Medrol (Ulysses)] 4 mg tablets,dose pack See Rx Instructions .ROUTE .COMPLEX Qty: 21 0RF Rx Instructions: orally per package directions methocarbamol 750 mg tablet 750 mg PO TID Qty: 10 0RF No Action ropinirole 4 mg tablet 4 mg PO TID opium tincture 10 mg/mL (morphine) tincture 3 mg PO TID PRN fluticasone propionate [Flonase Allergy Relief] 50 mcg/actuation spray,suspension 1 spray intranasal DAILY Qty: 16 0RF Rx Instructions: administer into each nostril duloxetine [Cymbalta] 60 mg capsule,delayed release(DR/EC) 60 mg PO DAILY Qty: 30 0RF tizanidine 4 mg tablet 4 mg PO Q8H PRN (Reason: Spasms) metoprolol succinate 50 mg tablet extended release 24 hr 50 mg PO QAM Aspir-81 81 mg Tablet,Delayed Release (Dr/Ec) 81 mg PO .THREE TIMES A WEEK Probiotic Blend 2 billion cell-50 mg Capsule 1 cap PO DAILY Flonase Allergy Relief 50 mcg/actuation spray,suspension 2 spray intranasal DAILY PRN (Reason: Allergy Symptoms) Rx Instructions: administer into each nostril tizanidine 4 mg tablet 4 mg PO Q6H PRN (Reason: muscle spasticity) Qty: 20 0RF Rx Instructions: do not exceed 3 doses per 24 hrs Discharge Orders: Discharge ED (Routine); Ordered 12/12/24 Ordered By: Alejandro Guidry Referrals: Sae Oneal DO [Primary Care Provider] - 1-3 days Patient Instructions: Opioid Safety, Pain Management Activity Restrictions/Additional Instructions: Medication as directed. You may use this in addition to the hydrocodone you have at home. Call your doctor later this morning for a follow-up appointment. Print Language: Serbian Coding Level of Care Code ED Solutions Market Consultant for Carlos Hernandez
[2024-12-12] MEDS: orphenadrine 30 mg/mL Inj 2 mL 60 MG IM (04:20)
[2024-12-12] MEDS: ketorolac 60 mg/2 mL INJ IM (04:20)
[2024-12-12] MEDS: ondansetron 4 MG Tablet PO (04:27)
[2024-12-12 04:28] VITALS: RESP 18; O2SAT 99
[2024-12-12] MEDS: oxyCODONE-APAP 5-325 mg Tablet 2 TAB PO (04:28)
[2024-12-12 05:21] VITALS: BP 130/90; PULSE 82; O2SAT 99
== END 2024-12-12 05:23 | disposition home or self-care (01) ==
PROVIDERS: Emergency Provider Emergency Medicine; PCP Internal Medicine
DX: M54.50 Low back pain, unspecified (principal); F17.210 Nicotine dependence, cigarettes, uncomplicated
CPT/HCPCS: 96372; 99284; J1885; J2360; J9999; Q0162

== ENCOUNTER → 2025-05-22 16:05 | Outpatient (BNVA) | payer MEDICARE, MEDICAID, SELFPAY ==
[2021-10-07 09:52] VITALS: BP 139/86; BMI 31.6
== END ==
PROVIDERS: PCP Internal Medicine; Visit Provider Registered Nurse Neonatal Intensive Care
DX: R30.0 Dysuria (principal)
CPT/HCPCS: 81000; 87086